=== PATIENT | female | born 1945 | race Caucasian/White ===

== ENCOUNTER 2021-04-30 01:32 | Outpatient (CLI) | payer MEDICARE, OTHER, SELFPAY ==
[2021-04-30 13:23] LABS: Source Nasal/Nares
[2021-04-30 16:55] LABS: COVID-19 PCR Negative (Negative)
== END 2021-04-30 01:33 | disposition home or self-care (01) ==
LOC: LBO 01:32
PROVIDERS: PCP Family Medicine; Visit Provider Ophthalmology
DX: Z20.822 Contact with and (suspected) exposure to COVID-19 (principal); Z01.818 Encounter for other preprocedural examination
CPT/HCPCS: 87635

== ENCOUNTER 2021-05-03 06:59 | Day surgery (SDC) | payer MEDICARE, OTHER, SELFPAY ==
--- NOTE | 2021-05-03 07:31 | ANES.PREOP_ITS ---
General Info Date of Service Date Performed: 05/03/21 Height: 4 ft 11.75 in Weight: 78.562 kg Body Mass Index (BMI): 34.1 Surgical Procedure: Operation Date: 05/03/21 08:40 Proposed Procedures Side Surgeon p Cataract Extraction with IOL Implant Right Armani Russo MD Meds Allergies and Home Medications Allergies Allergy/AdvReac Type Severity Reaction Status Date / Time hydrochlorothiazide Allergy Intermediate Skin Rash Unverified 05/03/21 07:28 simvastatin [From Zocor] Allergy Intermediate Skin Rash Unverified 05/03/21 07:28 Oheevyo-Pdr-Krl Reductase Allergy Unknown Unverified 05/03/21 07:28 Inhibitor FARRAH Inhibitors AdvReac Intermediate Other (See Unverified 05/03/21 07:28 Comment) acetaminophen [From Percocet] AdvReac Intermediate Other (See Unverified 05/03/21 07:28 Comment) codeine AdvReac Intermediate Other (See Unverified 05/03/21 07:28 Comment) diclofenac [From Voltaren] AdvReac Intermediate Other (See Unverified 05/03/21 07:28 Comment) ibuprofen AdvReac Intermediate Other (See Unverified 05/03/21 07:28 Comment) nabumetone [From Relafen] AdvReac Intermediate Other (See Unverified 05/03/21 07:28 Comment) oxycodone [From Percocet] AdvReac Intermediate Other (See Unverified 05/03/21 07:28 Comment) Seafood Allergy Unknown Other (See Uncoded 05/03/21 07:28 Comment) Home Medication Medication Instructions Recorded Flax Seed Oil 3,000 mg PO DAILY 04/29/21 cholecalciferol (vitamin D3) 1,000 unit PO DAILY 04/29/21 coenzyme Q10 [Co Q-10] 10 mg PO DAILY 04/29/21 doxepin 10 mg PO DAILY 04/29/21 meclizine 25 mg PO Q8H 04/29/21 metoprolol succinate 100 mg PO DAILY 04/29/21 multivitamin with minerals [All 1 tab PO DAILY 04/29/21 Purpose Multivitamin-Min] vitamin B complex [B Complex] 1 cap PO DAILY 04/29/21 Current Visit Medications: Current Medications Generic Name Dose Route Start Last Admin Trade Name Freq PRN Reason Stop Dose Admin Acetaminophen 1,000 mg 05/03/21 06:00 Acetaminophen 500 Mg Tab PO Q4H PRN PRN Miscellaneous Medication 0 ml 05/03/21 06:00 Prednisolone 1%, Moxifloxacin 0.5%, Nepafenac 0.1% 5ml Btl OD DIRECTED [facility] Miscellaneous Medication 0 ml 05/03/21 06:00 Tropicam./Phenyleph. (1/2.5%) 5 Ml Btl OD DIRECTED [facility] Tetracaine HCl 0 ml 05/03/21 06:00 Tetracaine 0.5% 4 Ml Btl OD DIRECTED [facility] PFS Active Problems Active Problems: Problem Status Onset Code Nuclear sclerotic cataract of right eye H25.11 Cortical cataract of right eye H26.9 Posterior subcapsular age-related cataract, right eye H25.041 Medical History Medical History Backache Chest pain Pt. stated this was related to anxiety, had work-up. Compression fx, lumbar spine Constipation Disorder of shoulder Dizziness and giddiness GERD (gastroesophageal reflux disease) Hypertensive disorder Idiopathic osteoarthritis Impaired fasting glucose Insomnia Knee pain Medial epicondylitis Old myocardial infarction Other symptoms involving skin and integumentary tissues Pain in thoracic spine Sciatica Shoulder joint pain Spinal stenosis of lumbar region Trigger finger of right hand Vertiginous syndrome Surgical History Surgical History Hx of hysterectomy S/P appendectomy Tobacco Smoking/Tobacco Use Status: Former Tobacco Use Alcohol Alcohol Intake: current Alcohol intake frequency: a few times a month Alcohol type: beer Substance Use Substance use: Never Substance use type: does not use Vital Signs and Lab Results Lab Results Blood Type / Crossmatch: No Data to Display Complete Blood Count: No Data to Display Complete Metabolic Panel: No Data to Display Liver Function Panel: No Data to Display Coagulation Panel: No Data to Display Cardiac Panel: No Data to Display Arterial Blood Gas: No Data to Display Venous Blood Gas: No Data to Display Pancreas Panel: No Data to Display Thyroid Panel: No Data to Display Infectious Disease: Coronavirus (COVID-19)(PCR) Negative (Negative) 04/30/21 10:17 04/30/21 Coronavirus 2019 Source Nasal/Nares 04/30/21 10:17 09/17/21 Blood Cultures: No Data to Display Toxicology Panel: No Data to Display Anesthesia Assessment and Plan Anesthesia History Personal History: No History of Anesthesia Complications Family History: No Family History of Anesthesia Complications Exercise Tolerance Exercise Tolerance: Metabolic Equivalents>4 Pertinent Negatives Pertinent Negatives: No Major Pulmonary Symptoms or Complaints and No History of CVA/TIA Cardiac & Pulmonary Exam Cardiac Exam: Normal S1/S2 Heart Sounds Pulmonary Exam: Clear Bilateral Breath Sounds Cardiac and Pulmonary Comment:: Large daily dose of Metoprolol 100 mg bid. BP remains high. Patient denies cardiac complaint. Airway Exam Known Difficult Airway: No Mallampati Class: 2 Mouth Opening: Normal (> 3cm) Thyromental Distance: Greater than 3 cm Neck Range of Motion: Full ROM Neck Circumference: Normal Teeth Condition: Normal Dentition ASA Classification ASA Score: ASA 2 Emergency Case?: No NPO Status NPO Status: NPO Clears >2 hours, Solids >8 hours Anesthesia Plan Resuscitation Status: Full Code Anesthesia Technique: MAC Anesthesia Airway Planned: Natural Airway Monitors Used: Standard Monitors Preoperative Comments:: 5 level thoracic complaint per patient. 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 Reports sleeps in recliner due to inability to be flat. Patient reports significant GERD. Discussed plan with patient and will highly focus on positioning. Patient to be local and is aware and agrees.
[2021-05-03 07:36] VITALS: BMI 34.1
[2021-05-03] MEDS: Tropicam./Phenyleph. (1/2.5%) 5 ML BTL OD ×3 (07:37→07:49)
[2021-05-03 07:38] VITALS: BP 192/94; PULSE 60; RESP 16; TEMP 36.4; O2SAT 99
[2021-05-03] MEDS: Lidocaine 2% Jelly 6 ML SYR (08:24)
[2021-05-03] MEDS: Povidone-Iodine Ophth 30 ML BTL (08:25)
[2021-05-03] MEDS: Balanced Salt Soln.-PLUS 500 ML BAG (08:25)
[2021-05-03] MEDS: Tetracaine 0.5% 4 ML BTL OD (08:25)
[2021-05-03] MEDS: Lidocaine 1% Pres-Free 5 ML VIAL (08:26)
[2021-05-03] MEDS: Duovisc Viscoelastic System EACH 1 EACH (08:26)
--- NOTE | 2021-05-03 08:33 | W.ANESPOSTOP ---
Postoperative Evaluation Date, Time and Location Date Performed: 05/03/21 Time Performed: 08:53 Patient Location: Day Surgery Unit Vital Signs Most Recent Imported Vital Signs: Most Recent Vital Signs Temp Pulse Resp BP Pulse Ox 36.4 C L 60 16 192/94 H 99 05/03/21 07:38 05/03/21 07:38 05/03/21 07:38 05/03/21 07:38 05/03/21 07:38 Most Recent Manually Entered Vital Signs: Adult Blood Pressure: 222/93 Heart Rate: 62 Respirations: 18 Oxygen Saturation (%): 99 Temperature (C): 36.5 C Pain Score (0-10 Scale): 0 Pain Score Most Recent Pain Score: Most Recent Pain Score Pain Level 0 05/03/21 07:38 Assessment Mental Status: Awake (Alert & Oriented to Patient Baseline) Airway and Respiratory Function: Patent airway with normal (patient baseline) respiratory exam Cardiovascular Function: Hemodynamically Stable Hydration Status: Adequately Hydrated Nausea & Vomiting: No Nausea or Vomiting Pain: Pt. Denies Any Pain Peripheral Nerve Block: Other (Local by Dr. Russo) Teaching Patient Teaching: Advised to seek followup for the following concerns (See explanation) Concerns: Poorly Controlled Hypertension Postoperative Comments:: patient denies visual signs and symptoms or headache
[2021-05-03 08:53] VITALS: BP 222/93; PULSE 62; RESP 18; TEMP 36.5; O2SAT 98
--- NOTE | 2021-05-03 08:53 | W.PM.DSUDISC ---
Discharge Plan Disposition Patient Disposition: HOME Condition: Good Discharge Details Attending Provider: Armani Russo Primary Care Provider: Miguel Cruz [place] Meds and New Rx's Prescriptions: No Action metoprolol succinate 100 mg tablet extended release 24 hr 100 mg PO DAILY RF: 0 coenzyme Q10 [Co Q-10] 10 mg Capsule 10 mg PO DAILY RF: 0 doxepin 10 mg capsule 10 mg PO DAILY RF: 0 meclizine 25 mg Tablet 25 mg PO Q8H RF: 0 multivitamin with minerals [All Purpose Multivitamin-Min] Tablet 1 tab PO DAILY RF: 0 vitamin B complex [B Complex] Capsule 1 cap PO DAILY RF: 0 cholecalciferol (vitamin D3) 25 mcg (1,000 unit) Capsule 1,000 unit PO DAILY RF: 0 Flax Seed Oil 1,000 mg capsule 3,000 mg PO DAILY RF: 0 Discharge Instructions Stand Alone Forms: Post-op Topical Cataract Discharge Orders Discharge Orders: Discharge Order (Routine); Ordered 05/03/21 Ordered By: Armani Russo DS: Diagnosis Discharge Diagnosis (1) Nuclear sclerotic cataract of right eye: Status: Resolved (2) Cortical cataract of right eye: Status: Resolved (3) Posterior subcapsular age-related cataract, right eye: Status: Resolved
--- NOTE | 2021-05-03 08:54 | W.PM.OP ---
Date of service: 05/03/21 Time of Service: 08:54 Operative Note Operative Note DATE OF PROCEDURE: 05/03/21 PRE-OP DIAGNOSIS: Nuclear/cortical/posterior subcapsular cataract, right eye POST-OP DIAGNOSIS: same PROCEDURE: Cataract extraction using phacoemulsification with intraocular lens implant, right eye SURGEON: Armani Russo ANESTHESIA TYPE: Local By Surgeon and MAC Refer to Anesthesia Record ESTIMATED BLOOD LOSS: 0 PATHOLOGY: none sent COMPLICATIONS: None Patient was transported to: same day Patient's condition: stable Implants: J[employer] Jb/EVELYN Tecnis [id number] Indications: Progressive visual loss due to cataract, right eye Procedure Description: CATARACT SURGERY OPERATIVE REPORT PREOPERATIVE DIAGNOSIS: 1. Nuclear/cortical/posterior subcapsular cataract, right eye POSTOPERATIVE DIAGNOSIS: Same OPERATION: 1. Cataract extraction using phacoemulsification with posterior chamber intraocular lens implant, right eye. IOL: IOL Carpet Repairer/Model: J[employer] Jb / EVELYN Tecnis [id number] IOL Power: + 23.0 diopters IOL Serial Number: [id number] Optic Diameter: 6.0mm Haptic/Overall Diameter: 13.0mm PHACO INFO: Doyle Xerion Advanced Batteryurion Vision System with OZil and Active Fluidics Cumulative Dispersed Energy (CDE): 10.01 seconds SURGEON: Armani Russo MD, BRANDON ANESTHESIA: Monitored Anesthesia Care (MAC), with local sub-tenon's anesthetic infiltration COMPLICATIONS: None SPECIMENS: None INDICATIONS FOR PROCEDURE: The patient is a [id number]-lady with history of diminished visual acuity in both eyes secondary to the development of bilateral nuclear/cortical/posterior subcapsular cataract in the right eye. The option of cataract surgery was offered to the patient and she felt she was symptomatic that she wished to proceed. PROCEDURE: The correct surgical eye was identified and marked as the right eye and the pupil was dilated in the preoperative area using mydriatics and cycloplegics. The dilated pupil size was 0.5 mm. She elected to proceed without oral sedation.. The patient was brought to the operating room where cardiopulmonary monitoring was instituted and surgical time-out was performed, confirming the correct operative eye and IOL power. Topical anesthesia was administered and ophthalmic povidone-iodine 5% was instilled into the conjunctival fornices. Lidocaine gel was applied to the cornea and the pierre-ocular area was prepped with Betadine 10% solution and draped in the usual sterile fashion for intraocular surgery, including an aperture drape. A Tegaderm transparent film dressing was cut in half and used to cover the lashes and lid margins. Care was taken to sequester the lashes and lid margins under the Tegaderm dressing. A lid speculum was placed between the lids of the operative eye and the Khai-Anibal operating microscope was maneuvered into position. Michael scissors were then used to make a conjunctival buttonhole approximately 6mm posterior to the limbus in the inferonasal quadrant. Blunt dissection was carried out to expose bare sclera, and a blunt-tipped sub-tenon?s anesthesia cannula was introduced and passed posteriorly along the globe where non-preserved plain lidocaine was injected into posterior sub-Tenon?s space. A sideport knife was used to make a paracentesis port inferotemporally. Intraocular phenylephrine/lidocaine was injected into the anterior chamber. The anterior chamber was filled with viscoelastic. A 2.4mm keratome knife was used to create a half-thickness groove at the limbus and then to construct a three-plane near-clear corneal tunnel extending 2.0mm into clear cornea superiortemporally. A flap was raised on the anterior capsule and capsulorhexis forceps were used to complete a continuous curvilinear capsulorhexis of 5.0 mm. Balanced salt solution was then used to perform cortical cleaving hydrodissection and nuclear hydrodelineation until the lens could be freely rotated within the capsular bag. The lens nucleus was then disassembled and removed within the capsular bag and iris plane using phacoemulsification. Residual cortical material was removed using the I/A handpiece. The posterior capsule was carefully polished to remove as much residual lens epithelial cells as safely possible. The capsular bag was then inflated and the anterior chamber deepened with viscoelastic. The lens implant described above was inserted into the capsular bag using the EVELYN Timberlake Injector. A Kuglen hook was used to dial the IOL into position. Residual viscoelastic was then removed first from posterior to the IOL, then from the anterior chamber using the I/A handpiece. The lens implant was noted to center nicely within the capsular bag. The incisions were stromally hydrated, and the anterior chamber was reformed using BSS. Then 0.5cc of moxifloxacin 1.0mg/ml were injected into the capsular bag and anterior chamber. The incisions were checked with a Weck spear and found to be secure. Several drops of ophthalmic povidone-iodine 5% were then applied to the eye followed by two drops of Imprimis combination prednisolone/moxifloxacin/nepafenac solution. The drapes were removed and a clear plastic protective eye shield was placed over the eye. The patient was then returned to Same Day Surgery in stable condition.
[2021-05-03 09:10] VITALS: BP 222/93; PULSE 62; RESP 18; TEMPC 36.5; O2SAT 99
--- NOTE | 2021-05-03 09:49 | ANES_ITS ---
Date of service: 05/03/21 Time of Service: 09:38 Anesthesia Note Report Anesthesia Note: Called patients PCP, Miguel Fairchild, and discussed intraoperative hypertension with department of natural resources officer. Highest systolic we observed was 223, diastolics normal. Patient asymptomatic and did come down postoperatively. Appears stress mediated. deputy clerk of superior court is to reach out to the patient with an appointment and we will postpone her next cataract until she is better controlled. I discussed this plan with the patient and she agreed. Dr. Russo is aware and agrees, he has already reached out to his office.
== END 2021-05-03 09:20 | disposition home or self-care (01) ==
PROVIDERS: PCP Family Medicine; Visit Provider Ophthalmology
PROC: (CPT 66984; principal; 2021-05-03 08:30)
DX: H25.041 Posterior subcapsular polar age-related cataract, right eye (principal); K21.9 Gastro-esophageal reflux disease without esophagitis; I10 Essential (primary) hypertension
CPT/HCPCS: 66984; V2632

== ENCOUNTER 2021-05-14 01:16 | Outpatient (CLI) | payer MEDICARE, OTHER, SELFPAY ==
[2021-05-14 12:52] LABS: Source Nasal/Nares
[2021-05-14 15:32] LABS: COVID-19 PCR Negative (Negative)
== END 2021-05-14 01:17 | disposition home or self-care (01) ==
LOC: LBO 01:16
PROVIDERS: PCP Family Medicine; Visit Provider Ophthalmology
DX: Z20.822 Contact with and (suspected) exposure to COVID-19 (principal); Z01.818 Encounter for other preprocedural examination
CPT/HCPCS: 87635

== ENCOUNTER 2021-05-17 08:04 | Day surgery (SDC) | payer MEDICARE, OTHER, SELFPAY ==
--- NOTE | 2021-05-12 11:33 | SUR.PREOP ---
Pre-op call conducted with with patient. Patient was hypertensive for last cataract procedure on 05/03, was instructed by anesthesia to f/u with PCP for additional RX management, which pt. did. Sates she is monitoring her home BP's with the addition of Amlodpine 5mg which she typically takes in the afternoon. Pt. states her BP has been coming down into the 130's-140's range systolically, and has had some dizziness. Consulted with Graham Miller from anesthesia, pt. instructed to take Metoprolol only morning for surgery, and take Amlodipine at her normally scheduled time. All in agreeance.
[2021-05-17 08:10] VITALS: BP 141/87; PULSE 54; RESP 16; TEMP 36.2; O2SAT 97
[2021-05-17] MEDS: Tropicam./Phenyleph. (1/2.5%) 5 ML BTL OS ×3 (08:41→08:51)
--- NOTE | 2021-05-17 08:44 | W.ANESPRE ---
General Info Date of Service Date Performed: 05/17/21 Height: 4 ft 11.75 in Weight: 78.2 kg Body Mass Index (BMI): 33.9 Surgical Procedure: Operation Date: 05/17/21 10:40 Proposed Procedures Side Surgeon p Cataract Extraction with IOL Implant Left Armani Russo MD Meds Allergies and Home Medications Allergies Allergy/AdvReac Type Severity Reaction Status Date / Time hydrochlorothiazide Allergy Intermediate Skin Rash Unverified 05/17/21 08:28 simvastatin [From Zocor] Allergy Intermediate Skin Rash Unverified 05/17/21 08:28 Uywmaou-Fds-Eqf Reductase Allergy Unknown Unverified 05/17/21 08:28 Inhibitor FARRAH Inhibitors AdvReac Intermediate Other (See Unverified 05/17/21 08:28 Comment) acetaminophen [From Percocet] AdvReac Intermediate Other (See Unverified 05/17/21 08:28 Comment) codeine AdvReac Intermediate Other (See Unverified 05/17/21 08:28 Comment) diclofenac [From Voltaren] AdvReac Intermediate Other (See Unverified 05/17/21 08:28 Comment) ibuprofen AdvReac Intermediate Other (See Unverified 05/17/21 08:28 Comment) nabumetone [From Relafen] AdvReac Intermediate Other (See Unverified 05/17/21 08:28 Comment) oxycodone [From Percocet] AdvReac Intermediate Other (See Unverified 05/17/21 08:28 Comment) Seafood Allergy Unknown Other (See Uncoded 05/17/21 08:28 Comment) Home Medication Medication Instructions Recorded Flax Seed Oil 3,000 mg PO DAILY 04/29/21 cholecalciferol (vitamin D3) 1,000 unit PO DAILY 04/29/21 coenzyme Q10 [Co Q-10] 10 mg PO DAILY 04/29/21 doxepin 10 mg PO DAILY 04/29/21 meclizine 25 mg PO Q8H 04/29/21 metoprolol succinate 100 mg PO DAILY 04/29/21 multivitamin with minerals [All 1 tab PO DAILY 04/29/21 Purpose Multivitamin-Min] vitamin B complex [B Complex] 1 cap PO DAILY 04/29/21 amlodipine 5 mg PO DAILY 05/12/21 Current Visit Medications: Current Medications Generic Name Dose Route Start Last Admin Trade Name Freq PRN Reason Stop Dose Admin Acetaminophen 1,000 mg 05/17/21 06:00 Acetaminophen 500 Mg Tab PO Q4H PRN PRN Miscellaneous Medication 0 ml 05/17/21 06:00 Prednisolone 1%, Moxifloxacin 0.5%, Nepafenac 0.1% 5ml Btl OS DIRECTED [facility] Miscellaneous Medication 0 ml 05/17/21 06:00 05/17/21 08:41 Tropicam./Phenyleph. (1/2.5%) 5 Ml Btl OS 1 drp DIRECTED [facility] Administration Tetracaine HCl 0 ml 05/17/21 06:00 Tetracaine 0.5% 4 Ml Btl OS DIRECTED [facility] PFSH Active Problems Active Problems: Problem Status Onset Code Posterior subcapsular age-related cataract of left eye H25.042 Cortical cataract of left eye H26.9 Nuclear sclerotic cataract of left eye H25.12 Nuclear sclerotic cataract of right eye H25.11 Cortical cataract of right eye H26.9 Posterior subcapsular age-related cataract, right eye H25.041 Medical History Medical History Backache Chest pain Pt. stated this was related to anxiety, had work-up. Compression fx, lumbar spine Constipation Disorder of shoulder Dizziness and giddiness GERD (gastroesophageal reflux disease) Hypertensive disorder Idiopathic osteoarthritis Impaired fasting glucose Insomnia Knee pain Medial epicondylitis Old myocardial infarction Other symptoms involving skin and integumentary tissues Pain in thoracic spine Sciatica Shoulder joint pain Spinal stenosis of lumbar region Trigger finger of right hand Vertiginous syndrome Surgical History Surgical History Hx of hysterectomy S/P appendectomy Tobacco Smoking/Tobacco Use Status: Former Tobacco Use Alcohol Alcohol Intake: current Alcohol intake frequency: a few times a month Alcohol type: beer Substance Use Substance use: Never Substance use type: does not use Vital Signs and Lab Results Vital Signs Most Recent Vital Signs in EMR: Most Recent Vital Signs Temp Pulse Resp BP Pulse Ox 36.2 C L 54 L 16 141/87 H 97 05/17/21 08:10 05/17/21 08:10 05/17/21 08:10 05/17/21 08:10 05/17/21 08:10 Lab Results Blood Type / Crossmatch: No Data to Display Complete Blood Count: No Data to Display Complete Metabolic Panel: No Data to Display Liver Function Panel: No Data to Display Coagulation Panel: No Data to Display Cardiac Panel: No Data to Display Arterial Blood Gas: No Data to Display Venous Blood Gas: No Data to Display Pancreas Panel: No Data to Display Thyroid Panel: No Data to Display Infectious Disease: Coronavirus (COVID-19)(PCR) Negative (Negative) 05/14/21 10:09 05/14/21 Coronavirus 2019 Source Nasal/Nares 05/14/21 10:09 05/14/21 Blood Cultures: No Data to Display Toxicology Panel: No Data to Display Anesthesia Assessment and Plan Anesthesia History Personal History: No History of Anesthesia Complications Family History: No Family History of Anesthesia Complications Exercise Tolerance Exercise Tolerance: Metabolic Equivalents>4 Pertinent Negatives Pertinent Negatives: No Symptoms of GERD, No Major Cardiovascular Symptoms or Complaints, No Major Pulmonary Symptoms or Complaints and No History of CVA/TIA Cardiac & Pulmonary Exam Cardiac Exam: Normal S1/S2 Heart Sounds Pulmonary Exam: Clear Bilateral Breath Sounds Airway Exam Known Difficult Airway: No Mallampati Class: 2 Mouth Opening: Normal (> 3cm) Thyromental Distance: Greater than 3 cm Neck Range of Motion: Full ROM Neck Circumference: Normal Teeth Condition: Normal Dentition ASA Classification ASA Score: ASA 2 Emergency Case?: No NPO Status NPO Status: NPO Clears >2 hours, Solids >8 hours Anesthesia Plan Resuscitation Status: Full Code Anesthesia Technique: MAC Anesthesia Airway Planned: Natural Airway Monitors Used: Standard Monitors
[2021-05-17 08:46] VITALS: BMI 33.9
[2021-05-17] MEDS: Tetracaine 0.5% 4 ML BTL OS (09:49)
[2021-05-17] MEDS: Balanced Salt Soln.-PLUS 500 ML BAG (09:50)
[2021-05-17] MEDS: Duovisc Viscoelastic System EACH 1 EACH (09:50)
[2021-05-17] MEDS: Lidocaine 1% Pres-Free 5 ML VIAL (09:51)
[2021-05-17] MEDS: Lidocaine 2% Jelly 6 ML SYR (09:52)
[2021-05-17] MEDS: Povidone-Iodine Ophth 30 ML BTL (09:53)
[2021-05-17 10:10] VITALS: BP 183/79; PULSE 56; RESP 16; TEMP 36.2; O2SAT 98
--- NOTE | 2021-05-17 10:12 | PDOC.DSDIS_ITS ---
Discharge Plan Disposition Patient Disposition: HOME Condition: Good Discharge Details Attending Provider: Armani Russo Primary Care Provider: Miguel Cruz [place] Meds and New Rx's Prescriptions: No Action amlodipine 5 mg tablet 5 mg PO DAILY RF: 0 metoprolol succinate 100 mg tablet extended release 24 hr 100 mg PO DAILY RF: 0 coenzyme Q10 [Co Q-10] 10 mg Capsule 10 mg PO DAILY RF: 0 doxepin 10 mg capsule 10 mg PO DAILY RF: 0 meclizine 25 mg Tablet 25 mg PO Q8H RF: 0 multivitamin with minerals [All Purpose Multivitamin-Min] Tablet 1 tab PO DAILY RF: 0 vitamin B complex [B Complex] Capsule 1 cap PO DAILY RF: 0 cholecalciferol (vitamin D3) 25 mcg (1,000 unit) Capsule 1,000 unit PO DAILY RF: 0 Flax Seed Oil 1,000 mg capsule 3,000 mg PO DAILY RF: 0 Discharge Instructions Stand Alone Forms: Post-op Topical Cataract, Shreya Ganey ([facility]) Discharge Orders Discharge Orders: Discharge Order (Routine); Ordered 05/17/21 Ordered By: Armani Russo DS: Diagnosis Discharge Diagnosis (1) Posterior subcapsular age-related cataract of left eye: Status: Resolved (2) Cortical cataract of left eye: Status: Resolved (3) Nuclear sclerotic cataract of left eye: Status: Resolved
--- NOTE | 2021-05-17 10:13 | W.ANESPOSTOP ---
Postoperative Evaluation Date, Time and Location Date Performed: 05/17/21 Time Performed: 10:13 Patient Location: Day Surgery Unit Vital Signs Most Recent Imported Vital Signs: Most Recent Vital Signs Temp Pulse Resp BP Pulse Ox 36.2 C L 54 L 16 141/87 H 97 05/17/21 08:10 05/17/21 08:10 05/17/21 08:10 05/17/21 08:10 05/17/21 08:10 Pain Score Most Recent Pain Score: Most Recent Pain Score Pain Level 0 05/17/21 08:10 Assessment Mental Status: Awake (Alert & Oriented to Patient Baseline) Airway and Respiratory Function: Patent airway with normal (patient baseline) respiratory exam Cardiovascular Function: Hemodynamically Stable Hydration Status: Adequately Hydrated Nausea & Vomiting: No Nausea or Vomiting Pain: Pt. Denies Any Pain Peripheral Nerve Block: Patient did not receive a nerve block
--- NOTE | 2021-05-17 10:13 | W.PM.OP ---
Date of service: 05/17/21 Time of Service: 10:13 Operative Note Operative Note DATE OF PROCEDURE: 05/17/21 PRE-OP DIAGNOSIS: Nuclear/cortical/posterior subcapsular cataract, left eye POST-OP DIAGNOSIS: same PROCEDURE: Cataract extraction using phacoemulsification with intraocular lens implant, left eye SURGEON: Armani Russo ANESTHESIA TYPE: Local By Surgeon and MAC Refer to Anesthesia Record PATHOLOGY: none sent COMPLICATIONS: None Patient was transported to: same day Patient's condition: stable Implants: [employer] / [employer] Tecnis [id number] Indications: Progressive decreased vision due to cataract, left eye, with poor red reflex Procedure Description: CATARACT SURGERY OPERATIVE REPORT PREOPERATIVE DIAGNOSIS: 1. Nuclear/cortical/posterior subcapsular cataract, left eye POSTOPERATIVE DIAGNOSIS: Same OPERATION: 1. Cataract extraction using phacoemulsification with posterior chamber intraocular lens implant, left eye. IOL: IOL Sap Bw Bi Developer/Model: [employer] / EVELYN Tecnis [id number] IOL Power: + 23.5 diopters IOL Serial Number: [id number] Optic Diameter: 6.0 mm Haptic/Overall Diameter: 13.0 mm PHACO INFO: Doyle Digidentityurion Vision System with OZil and [employer] Cumulative Dispersed Energy (CDE): 18.04 seconds SURGEON: Armani Russo MD, BRANDON ANESTHESIA: Monitored A [facility] (MAC), with local sub-tenon's anesthetic infiltration COMPLICATIONS: None SPECIMENS: None INDICATIONS FOR PROCEDURE: The patient is a 75-year-old lady with history of diminished visual acuity in both eyes secondary to the development of bilateral nuclear/cortical/posterior subcapsular cataract. She has already undergone cataract surgery in the right eye and is doing well postoperatively. She now presents for cataract surgery in the left eye. PROCEDURE: The correct surgical eye was identified and marked as the left eye and the pupil was dilated in the preoperative area using mydriatics and cycloplegics. The dilated pupil size was 6.5 mm. She elected to proceed without oral sedation. The patient was brought to the operating room where cardiopulmonary monitoring was instituted and surgical time-out was performed, confirming the correct operative eye and IOL power. Topical anesthesia was administered and ophthalmic povidone-iodine 5% was instilled into the conjunctival fornices. Lidocaine gel was applied to the cornea and the pierre-ocular area was prepped with Betadine 10% solution and draped in the usual sterile fashion for intraocular surgery, including an aperture drape. A Tegaderm transparent film dressing was cut in half and used to cover the lashes and lid margins. Care was taken to sequester the lashes and lid margins under the Tegaderm dressing. A lid speculum was placed between the lids of the operative eye and the Khai-Anibal operating microscope was maneuvered into position. Michael scissors were then used to make a conjunctival buttonhole approximately 6mm posterior to the limbus in the inferonasal quadrant. Blunt dissection was carried out to expose bare sclera, and a blunt-tipped sub-tenon?s anesthesia cannula was introduced and passed posteriorly along the globe where non-preserved plain lidocaine was injected into posterior sub-Tenon?s space. A sideport knife was used to make a paracentesis port superiorly/superiortemporally. Intraocular phenylephrine/lidocaine was injected int the anterior chamber.. The anterior chamber was filled with viscoelastic. A 2.4mm keratome knife was used to create a half-thickness groove at the limbus and then to construct a three-plane near-clear corneal tunnel extending 2.0mm into clear cornea at the 3:00 position. A flap was raised on the anterior capsule and capsulorhexis forceps were used to complete a continuous curvilinear capsulorhexis of 5.0 mm. Balanced salt solution was then used to perform cortical cleaving hydrodissection and nuclear hydrodelineation until the lens could be freely rotated within the capsular bag. The lens nucleus was then disassembled and removed within the capsular bag and iris plane using phacoemulsification. Residual cortical material was removed using the 45-degree angled silicone I/A tip with 0.3mm port. The posterior capsule was carefully polished to remove as much residual lens epithelial cells as safely possible. The capsular bag was then inflated and the anterior chamber deepened with viscoelastic. The lens implant described above was inserted into the capsular bag using the EVELYN [place] Injector. A Kuglen hook was used to dial the IOL into position. Residual viscoelastic was then removed first from posterior to the IOL, then from the anterior chamber using the I/A handpiece. The lens implant was noted to center nicely within the capsular bag. The incisions were stromally hydrated, and the anterior chamber was reformed using BSS. Then 0.5cc of moxifloxacin 1.0mg/ml were injected into the capsular bag and anterior chamber. The incisions were checked with a Weck spear and found to be secure. Several drops of ophthalmic povidone-iodine 5% were then applied to the eye followed by two drops of Imprimis combination prednisolone/moxifloxacin/nepafenac solution. The drapes were removed and a clear plastic protective eye shield was placed over the eye. The patient was then returned to [facility] in stable condition.
[2021-05-17 10:28] VITALS: BP 154/71; PULSE 58; RESP 16; TEMP 36.5; O2SAT 98
== END 2021-05-17 10:36 | disposition home or self-care (01) ==
PROVIDERS: PCP Family Medicine; Visit Provider Ophthalmology
PROC: (CPT 66984; principal; 2021-05-17 10:30)
DX: H25.042 Posterior subcapsular polar age-related cataract, left eye (principal); I10 Essential (primary) hypertension; K21.9 Gastro-esophageal reflux disease without esophagitis
CPT/HCPCS: 66984; V2632